=== PATIENT | female | born 2000 | race Caucasian/White ===

== ENCOUNTER 2020-11-04 20:35 | Emergency (ER) | payer OTHER, BC ==
[~2020-11-04] VITALS: Ht 170.2 cm; Wt 99.8 kg
[2020-11-04 22:41] VITALS: BP 134/90
== END 2020-11-04 22:41 | disposition home or self-care (01) ==
LOC: ER 20:35
DX: S67.21XA Crushing injury of right hand, initial encounter (principal); W23.0XXA Caught, crushed, jammed, or pinched between moving objects, initial encounter; Y93.89 Activity, other specified; Y92.89 Other specified places as the place of occurrence of the external cause; Y99.8 Other external cause status